=== PATIENT | female | born 1950 | race Caucasian/White ===

== ENCOUNTER 2023-06-16 12:44 | Outpatient (REF) | payer MEDICARE, MEDICAID, SELFPAY ==
--- NOTE | ~2023-06-16 | XR_ITS ---
EXAMINATION: XR HIP, RIGHT CLINICAL INFORMATION: Pain. COMPARISON: None available. TECHNIQUE: A frog lateral view of the right hip is submitted, together with a frontal view the pelvis. FINDINGS: There is bony demineralization. The right acetabular joint space is well-maintained. There is mild subchondral sclerosis of the right acetabular roof. 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 No periprosthetic fracture is noted. The pubic symphysis is intact. There are pelvic phleboliths. There is no foreign body. XR/XR hip RT min 2V IMPRESSION: 1. 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 2. 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 3. No acute fracture or dislocation is seen.
== END 2023-06-16 12:45 | disposition home or self-care (01) ==
LOC: HO.HOSX 12:44
PROVIDERS: PCP Nurse Practitioner Family; Visit Provider Orthopaedic Surgery
DX: M25.551 Pain in right hip (principal); Z96.642 Presence of left artificial hip joint
CPT/HCPCS: 73502; 99202

== ENCOUNTER 2023-06-16 12:44 | Outpatient (AMB) | payer MEDICARE, MEDICAID, SELFPAY ==
--- NOTE | 2023-06-16 13:09 | A.OFFVIS_ITS ---
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 The patient states that her low back pain has gotten worse over the last few years in spite of continued non operative treatments. She has had formal physical therapy which aggravated her pain. She also reports intermittent weakness in her right leg. She does take oxycodone for chronic right knee pain. She has been told that she needs right total knee replacement surgery but continues to try to lose weight. Allergies No Known Allergies Allergy (Verified 06/16/23 13:16) Medication List - Last Reconciled 06/16/23 by Bryce Chisholm MD albuterol sulfate mg inhalation DIRECTED fluticasone propionate 50 mcg/actuation sprays intranasal gabapentin 300 mg PO TID lovastatin 40 mg PO DAILY methylprednisolone 0 mg PO nystatin (Nyamyc) topical nystatin topical oxycodone-acetaminophen 10-325 mg 1 tab PO TID PRN ropinirole 3 mg PO BEDTIME sertraline 100 mg PO DAILY tiotropium bromide (Spiriva with HandiHaler) 1 cap inhalation DAILY torsemide 20 mg PO DAILY warfarin 5 mg PO DAILY PFSH Surgical History (Updated 06/16/23 @ 13:23 by Ingrid Villasenor CMA) History of hip surgery Hx of appendectomy Hx of cholecystectomy Hx of hysterectomy H/O section Social History (Updated 06/16/23 @ 13:22 by Ingrid Villasenor CMA) Patient Tobacco Use Status: Never used Tobacco Physical Exam Vital Signs: BMI result Body Mass Index 50.0 Const Other: Well-nourished well-developed very friendly female awake alert and oriented x3 in no acute distress Back/Spine/Pelvis Other: Low back examination shows right-sided paraspinal muscle tenderness, pain with range of motion, positive straight leg raise test on the right at 70 degrees, 4/5 strength with testing of her right hip flexors and knee extensors when compared to 5/5 strength on her left side Extrem Other: Right hip examination shows minimal discomfort with range of motion, no tenderness over her bursa Results Reviewed Results Reviewed: X-rays of the patient's right hip show mild diffuse joint space narrowing, no acute bony abnormalities Assessment & Plan Assessment & Plan (1) Low Back Pain: Code(s): M54.50 - Low back pain, unspecified (2) Right hip pain: Code(s): M25.551 - Pain in right hip Plan Ms. Rivas presents with progressively worsening low back pain which radiates down her right leg as well as associated right leg weakness most likely due to lumbar stenosis or a disc herniation. Thus, I will send the patient for an MRI of her lumbar spine for further evaluation. I will contact her by phone once the MRI results are available. She will call me prior to that time should her symptoms worsen in any way. Feel free to call me at any time should questions regarding her orthopedic management arise. I spent 22 minutes in reviewing the patient's records and imaging studies, seeing the patient and documenting in the medical record. Orders: Orders XR hip RT min 2V Today M25.551 - Pain in right hip MR lumbar spine wo con Today M54.50 - Low back pain, unspecified, M79.604 - Pain in right leg Coding Level of Care Code New Pt Level 2 (52516) Diagnoses Low Back Pain M54.50 Right hip pain M25.551
[2023-06-16 13:11] VITALS: BMI 50.0
== END 2023-06-16 13:34 | disposition home or self-care (01) ==
LOC: HO.HOS 12:45
PROVIDERS: PCP Nurse Practitioner Family; Visit Provider Orthopaedic Surgery
DX: M54.50 Low back pain, unspecified (principal); M25.551 Pain in right hip
CPT/HCPCS: 99202

== ENCOUNTER 2024-12-02 14:12 | Outpatient (REF) | payer MEDICARE, MEDICAID, SELFPAY ==
--- OUTSIDE RECORDS SUMMARY | 2024-12-02 15:00 | XMS_ITS | Encounter Summary ---
Author Organization [employer] Address [address] [place] [address] 7 [place] [address] Care Team Providers Care Efficiency Miner Name Role Phone Isadora Sparks Unavailable [phone] Javier PaganP Primary Care Provider Unavaila Emili Garcia PLANETARIUM TECHNICIAN Primary Care Provider [phone] Encounter Details Date Type Department Care Team ([facility] Contact Info) Description 08/14/[address] [facility] [address] [place] [phone] PcpGrant Unassigned Social History Tobacco Use Types Packs/Day Years Used Date Smoking Tobacco: Never Assessed Comments Unknown Sex and Gender Information Value Date Recorded Sex Assigned at Female 08/06/2022 2:47 PM EDT Legal Sex Female 2:44 PM EDT Gender Identity Female 08/06/2022 2:47 PM EDT Sexual Orientation Choose not to disclose 2022 2:47 PM EDT documented as of this encounter Plan of Treatment Upcoming Encounters Date Type Department Care Team ([facility] Contact Info) Description 12/08/2024 2:45 PM EDT Office Visit [facility] [address] [place] [phone] Alexa Osborn LLD [address] [place] [phone] 12/29/2024 9:20 AM EDT Office Visit [facility] [address] [place] [phone] Emili Chairez NP [address] [place] [address] documented as of this encounter Visit Diagnoses Not on filedocumented in this encounter Care Teams Efficiency Miner Relationship Specialty Start Date End Date Javier Pagan FNP [address] [phone] PCP - General Family Medicine 11/21/22 12/30/22 Emili Chairze NP [address] [place] [address] PCP - General Family Medicine 12/31/22 [place], [place] [address] [place] [address] 10/28/22 12/23/23 documented as of this encounter
--- OUTSIDE RECORDS SUMMARY | 2024-12-02 15:00 | XMS_ITS | Clinical Summary ---
Author Organization [facility] Address [address] [place] [address] Care Team Providers Care Hull Drafter Name Role Phone Emili Chairez NP Primary Care Provider [phone] Allergies No known active allergies Medications albuterol 2.5 mg/3 mL (0.083%) nebulizer solution SMARTSI Vial(s) Via Nebulizer As Directed 3 Active Eliquis 5 mg tablet Take 5 mg by mouth 2 times daily. 4 Active cephalexin (KEFTAB) 500 mg tablet Take 500 mg by mouth 2 times daily. 4 Active dilTIAZem CD (CARDIZEM CD) 240 mg 24 hr capsule SMARTSI Capsule(s) By Mouth Every Morning 4 Active Trulicity 1.5 mg/0.5 mL injection dose SMARTSI.5 Milliliter(s) SUB-Q Once a Week Active fluticasone propionate (FLONASE) 50 mcg/actuation nasal spray Administer 1 spray into each nostril 2 times a day. 3 Active gabapentin (NEURONTIN) 300 mg capsule Take 1 capsule in the morning and 2 capsules at night 4 Active lovastatin (MEVACOR) 40 mg tablet Take 40 mg by mouth daily. 4 Active Nyamyc 100,000 unit/gram powder SMARTSIG:Topica l Twice Daily 3 Active nystatin 100,000 unit/gram cream Apply topically to the affected area 3 times a day. 4 Active torsemide (DEMADEX) 20 mg tablet Take 40 mg by mouth daily. 4 Active sertraline (ZOLOFT) 100 mg tablet Take 100 mg by mouth once a day. Active rOPINIRole (REQUIP) 0.25 mg tablet Take 0.25 mg by mouth 3 times a day. Active Active Problems Problem Noted Date Diagnosed Date Essential tremor 01/12/2024 Family History Medical History Relation Name Comments Parkinsonism Father Relation Name Status Comments Father Social History Tobacco Use Types Packs/Day Years Used Date Smoking Tobacco: Former Cigarettes Smokeless Tobacco: Never Tobacco Cessation:Counseling Given: Not Answered Alcohol Use Standard Drinks/Week Comments Not Currently 0 (1 standard drink = 0.6 oz pur e alcohol) Comments Unknown Sex and Gender Information Value Date Recorded Sex Assigned at Not on file Legal Sex Female 3:04 PM EDT Gender Identity Not on file Sexual Orientation Not on file Last Filed Vital Signs Vital Sign Reading Time Taken Comments Blood Pressure 125/68 01/12/2024 1:58 PM EDT Pulse - - Temperature 36.2 C (97.2 F) 01/12/2024 1:58 PM EDT Respiratory Rate - - Oxygen Saturation - - Inhaled Oxygen Concentration - - Weight 128.4 kg (283 lb) 01/12/2024 1:5 8 PM EDT patient home scale Height - - Body Mass Index - - Plan of Treatment Upcoming Encounters Date Type Department Care Team (Late st Contact Info) Description 01/17/2025 1:30 PM EDT Follow-Up [facility] Neurology [address] [place] [address] [address] Medical [place] [id number] Robert Vaughn MD [address] [place] [phone] Health Maintenance Due Date Last Done Comments Cologuard 1950 Colonoscopy 1952 Hepatitis C Screening 1952 Sigmoidoscopy 1952 Medicare AWV [address] Lung Cancer Screening (Baseline) 2002 Osteoporosis Screening 2002 Zoster Vaccines (1 of 2) 2002 COVID-19 Vaccine ( season) 2023 Alcohol/Substance Use Screening 04/21/2024 Depression Screening and Follow-Up 04/21/2024 Health Care Proxy Review 04/21/2024 Social Drivers of Health Annual Screening 04/21/2024 Colon Cancer Screening 10/23/2024 FOBT / Fit Test 10/23/2024 10/24/2023 Influenza Vaccine (#1) 2024 2, 02/27/2021, 01/29/2020, Additional history exists RSV Vaccine (60+ years old and patients) (1 - 1-dose 75+ series) 10/17/2027 DTaP,Tdap,and Td Vaccines (3 - Td or Tdap) 12/28/2031 12/27/2021, 12/04/2010 Pneumococcal Vaccine: 50+ Years Completed 12/29/2023, 07/09/2018, 01/31/2010 Hepatitis B Vaccines Aged Out No long er eligible based on patient's age to complete this topic Insurance MEDICARE [facility] Care Teams Hull Drafter Relationship Specialty Start Date End Date Emili Chairez NP PCP - General Family Medicine 11/14/23 Emili Chairez Family Practice Provider 04/21/23
--- OUTSIDE RECORDS SUMMARY | 2024-12-02 15:00 | XMS_ITS | Clinical Summary ---
Author Organization [facility] Address [address] [place] [phone] Phone Care Team Providers Care Travel Attendants Name Role Phone Emili Chairez ERADICATOR Primary Care Provider [phone] Allergies Active Allergy Reactions Criticality Noted Date Comments Grass Pollen-Red Top, Standard Other (See Comments) Low 08/25/2022 Medications albuterol 90 mcg/actuation inhaler PLEASE SEE ATTACHED FOR DETAILED DIRECTIONS 09/01/19 22 Active azithromycin (ZITHROMAX) 500 MG tablet Take 1 tablet by mouth every morning. 08/09/19 23 Active celecoxib (CELEBREX) 200 MG capsule Take 400 mg by mouth. 07/26/19 23 Active cyclobenzaprine (FLEXERIL) 10 MG tablet TAKE 1 TABLET POO AT BEDTIME 07/26/19 23 Active dilTIAZem (CARDIZEM CD) 240 MG 24 hr capsule Take 1 capsule by mouth every morning. 08/22/19 23 Active dulaglutide (TRULICITY) 0.75 mg/0.5 mL subcutaneous injection INJECT 0.5 ML SUBCUTANEOUSLY WEEKLY 07/26/19 23 Active fluticasone propionate (FLONASE) 50 mcg/actuation nasal spray USE 1 SPRAY IN EACH NOSTRIL TWICE A DAY 05/20/19 23 Active estradioL (ESTRACE) 0.01 % (0.1 mg/gram) vaginal cream 0.5 GM, APPLY VAGINALLY, TWICE WEEKLY 04/29/19 23 Active glipiZIDE (GLUCOTROL) 10 MG tablet Take 20 mg by mouth. 07/13/19 23 Active lovastatin (MEVACOR) 40 MG tablet Take 40 mg by mouth. 07/06/19 23 Active oxyCODONE-acetam inophen (PERCOCET) 5-325 mg per tablet 08/21/19 Active rOPINIRole (REQUIP) 3 MG tablet 08/30/19 23 Active sertraline (ZOLOFT) 100 MG tablet Take 100 mg by mouth. 05/27/19 23 Active torsemide (DEMADEX) 20 MG tablet Take 20 mg by mouth. 07/10/19 23 Active warfarin (COUMADIN) 5 MG tablet TAKE UP TO 1 TAB BY MOUTH ONCE DAILY DIRECTED BY THE [facility]. 02/19/20 22 Active gabapentin (NEURONTIN) 300 MG capsule Take 300 mg by mouth nightly at bedtime. Active Active Problems Problem Noted Date Diagnosed Date Trochanteric bursitis of right hip 06/02/2023 Social History Tobacco Use Types Packs/Day Years Used Date Smoking Tobacco: Former Cigarettes Q uit: 2011 Smokeless Tobacco: Never Alcohol Use Standard Drinks/Week Comments Never 0 (1 standard drink = 0.6 oz pur e alcohol) Education Answer Date Recorded Are you interested in more education? Not on emmy e 08/30/2022 Are you concerned about learning? Not on file 08/30/2022 No 08/30/2022 No 08/30/2022 Digital Access Answer Date Recorded No 09/10/2022 No 09/10/2022 Reliable internet access at home? Not on file 09/10/2022 Device with a working camera? Not on file Comments Unknown Sex and Gender Information Value Date Recorded Sex Assigned at Not on file Legal Sex Female 9:05 AM EDT Gender Identity Not on file Sexual Orientation Not on file Last Filed Vital Signs Vital Sign Reading Time Taken Comments Blood Pressure - - Pulse - - Temperature - - Respiratory Rate - - Oxygen Saturation - - Inhaled Oxygen Concentration - - Weight 129.7 kg (286 lb) 05/30/2023 10:09 AM EST Height 161.3 cm (5' 3.5 ) 05/30/2023 10:09 AM ES T Body Mass Index 49.87 05/30/2023 10:09 AM EST Plan of Treatment Health Maintenance Due Date Last Done Comments DEPRESSION SCREENING 1964 SMOKING Hx and SMOKELESS TOBACCO SCREENING 1965 HEPATITIS C SCREENING 1970 MAMMOGRAM 1992 COLOGUARD 1997 COLONOSCOPY 1997 COLORECTAL CANCER SCREENING 1997 FIT TEST 1997 FOBT 1997 SIGMOIDOSCOPY 1997 VIRTUAL COLONOSCOPY 1997 ZOSTER VACCINES (1 of 2) 2002 RSV VACCINE (1 - Risk 60-74 years 1-dose series) 2012 OSTEOPOROSIS SCREENING INITI AL (ONE-TIME) 2017 PNEUMOCOCCAL VACCINES (50+ years) (3 of 3 - PCV20 or PCV21) 07/10/2023 07/09/2018, 01/31/2010 COVID-19 VACCINE (3 - 2023-2 5 season) 2023 09/20/2020, 08/14/2020 LIPID PANEL 08/20/2027 08/19/2022 Adult Td,Tdap Booster 12/28/2031 12/27/2021 , 12/04/2010, 04/21/1995 HEPATITIS A VACCINES Aged Out No long er eligible based on patient's age to complete this topic HIB VACCINES Aged Out No longer eligi ble based on patient's age to complete this topic MENINGOCOCCAL VACCINES (ACWY) Aged Out No longer eligible based on patient's age to complete this topic MENINGOCOCCAL VACCINES (B) Aged Out N o longer eligible based on patient's age to complete this topic Medical Devices Not on file Insurance [employer] MEDICARE PART A & B [place] PART A & [place] [address] [place] [address] MEDICARE PART A & B Care Teams Travel Attendants Relationship Specialty Start Date End Date Emili Chairez NP [address] [place] [phone] PCP - General Nurse Practitioner 05/30/23 Additional Source Comments The information contained in this document represents components of the legal health record. It is not the complete legal health record.[facility]
== END 2024-12-02 14:13 | disposition home or self-care (01) ==
LOC: HO.HOSX 14:12
PROVIDERS: Visit Provider Orthopaedic Surgery
DX: Z13.89 Encounter for screening for other disorder (principal)